=== PATIENT | female | born 1960 | race Caucasian/White ===

== ENCOUNTER 2021-11-22 13:31 | Outpatient (CLI) | payer BC, SELFPAY ==
[2021-11-22 13:27] VITALS: BP 150/84; PULSE 89; RESP 18; TEMP 36.6; O2SAT 94; BMI 34.9
[2021-11-22 14:36] VITALS: BP 140/86; PULSE 81; RESP 17; TEMP 36.2; O2SAT 93
[2021-11-22 15:31] VITALS: BP 138/80; PULSE 71; RESP 16; TEMP 36.2; O2SAT 97
== END 2021-11-22 13:32 | disposition home or self-care (01) ==
LOC: OPS 13:32
PROVIDERS: PCP Family Medicine; Visit Provider Nurse Practitioner
DX: U07.1 COVID-19 (principal)
CPT/HCPCS: 96365

== ENCOUNTER 2021-11-23 15:27 | Emergency (ER) | payer BC, SELFPAY ==
--- NOTE | 2021-11-23 15:29 | ECG_ITS ---
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
[2021-11-23 15:58] VITALS: BP 144/83; PULSE 80; RESP 16; TEMP 37.1; O2SAT 94
--- NOTE | 2021-11-23 18:26 | XRR_ITS ---
PROCEDURE INFORMATION: Exam: XR Chest Exam date and time: 11/23/2021 6:26 PM Age: 61 years old Clinical indication: Cough and shortness of breath; Sternal or substernal pain; Additional info: Chest TECHNIQUE: Imaging protocol: XR of the chest. Views: 1 view. COMPARISON: No relevant prior studies available. FINDINGS: Lungs: Lungs are clear bilaterally. Pleural spaces: No pleural effusion. No pneumothorax. Heart/Mediastinum: Cardiac silhouette is moderately enlarged. Mediastinal contours are unremarkable. Bones/joints: Unremarkable for age. XR/XR chest 1V portable [id number] IMPRESSION: 1. No acute cardiopulmonary process. 2. Incidental/nonacute findings are listed in the report.
--- NOTE | 2021-11-23 18:49 | W.ED.COVID ---
HPI - COVID General: Chief Complaint: COVID symptoms Stated Complaint: covid + had infusion yesterday having cp Time Seen by Provider: 11/23/21 18:35 Triage information: Has fever, cough or shortness of breath. Exposure to COVID + person last 14 days History of Present Illness: HPI Narrative: 61-year-old female comes in today with some brief episodes of chest discomfort after taking prednisone and doxycycline. Patient was diagnosed with COVID-19 on Friday. Patient started feeling ill late Friday early Friday. Patient was started on doxycycline and prednisone on Friday by her primary care while awaiting COVID-19 results. Patient was infused with monoclonal antibodies on . Patient reports no fever since infusion of antibodies. Patient reports 3 brief episodes of chest discomfort. Patient denies any pain at this time. Patient appears well. Patient appears in no pain. Patient denies any chronic medical problems. COVID 19 other sytmptoms: positive chest pain COVID Results: No Data to Display Review of Systems Card: Reports: chest pain Physical Exam Const: COMMON NORMALS: average body habitus HENMT: COMMON NORMALS: normocephalic HEAD & SCALP: normocephalic Eye: COMMON NORMALS: Equal, round and reactive pupils present and EOMs intact bilaterally PUPIL: Yes Equal, round and reactive pupils present Neck/C-Spine: COMMON NORMALS: full ROM and no JVD Chest: COMMONS NORMALS: normal palpation of entire chest wall Resp: COMMON NORMALS: normal respiratory effort and clear to auscultation bilaterally AUSCULTATION: clear to auscultation bilaterally Cardio: COMMON NORMALS: no JVD, regular rate and regular rhythm RATE: regular rate RHYTHM: regular rhythm GI: COMMON NORMALS: Soft to palpation and non-tender PALPATION: Yes Soft to palpation Course Vital Signs: Vital signs: Vital Signs Temperature 98.7 F 11/23/21 15:58 Pulse Rate 80 11/23/21 15:58 Respiratory Rate 16 11/23/21 15:58 Blood Pressure 144/83 11/23/21 15:58 Pulse Oximetry 94 11/23/21 15:58 MDM - COVID MDM Narrative: Medical decision making narrative: 61-year-old female comes in with some chest discomfort intermittent. On exam lungs were clear to auscultation. Heart rate was regular without any abnormal tones. Distal pulses are intact. Abdomen was soft nontender. Skin was warm and dry. EKG was normal sinus rhythm. No prior exams were available for comparison. No ST elevation or ectopy was noted on evaluation. Patient's vital signs were otherwise normal. Lungs were clear to auscultation. Chest x-ray was unremarkable. Reviewed exam with patient with recommendations for treatment and follow-up. Patient reported understanding of care plan and need for follow-up. I believe patient probably has myalgias secondary to COVID-19. No sign of myocarditis, ACS or other serious illness was noted. Differential Diagnosis: Differential diagnosis: Likely COVID 19, pneumonia and NSTEMI/STEMI COVID Results: No Data to Display Discharge Plan Discharge Patient Disposition: Home Clinical Impression: COVID-19 Condition: Stable Discharge Orders: Discharge ED (Routine); Ordered 11/23/21 Ordered By: Aureliano Salas Referrals: Chalino Lee MD [Primary Care Provider] - Discharge Diet: Usual diet Discharge Activity: Increase activity as tolerated Patient Instructions: Viral Syndrome (ED) Activity Restrictions/Additional Instructions: Continue drinking plenty of fluids. Use acetaminophen and ibuprofen for pain. Monitor pulse oxygen for levels less than 90%. Return to the ER for worsening symptoms including chest pain with shortness of breath, low oxygen levels, and inability to hold liquids down. Follow-up with primary care for further directions. Return to the ER as needed. Coding Level of Care Code ED Family Welfare Social Work Professor for Neva Horton
== END 2021-11-23 20:30 | disposition home or self-care (01) ==
PROVIDERS: Emergency Provider Nurse Practitioner Family; PCP Family Medicine
DX: U07.1 COVID-19 (principal)
CPT/HCPCS: 71045; 93005; 99282

== ENCOUNTER 2024-09-02 06:00 | Outpatient (RCR) | payer BC, SELFPAY | END 2024-09-09 23:59 | disposition home or self-care (01) | LOC: SOT 06:00 | PROVIDERS: PCP Family Medicine; Visit Provider Orthopaedic Surgery Hand Surgery | DX: M65.351 Trigger finger, right little finger (principal); G56.01 Carpal tunnel syndrome, right upper limb | CPT/HCPCS: 97110; 97165; 97530 ==

== ENCOUNTER 2024-09-10 06:00 | Outpatient (RCR) | payer BC, SELFPAY | END 2024-10-09 23:59 | disposition home or self-care (01) | LOC: SOT 06:00 | PROVIDERS: PCP Family Medicine; Visit Provider Orthopaedic Surgery Hand Surgery | DX: M65.351 Trigger finger, right little finger (principal); G56.01 Carpal tunnel syndrome, right upper limb | CPT/HCPCS: 97022; 97110; 97140 ==

== ENCOUNTER 2025-01-08 06:00 | Outpatient (RCR) | payer BC, SELFPAY | END 2025-02-07 23:59 | disposition home or self-care (01) | LOC: SOT 06:00 | PROVIDERS: Visit Provider Orthopaedic Surgery Hand Surgery | DX: G56.01 Carpal tunnel syndrome, right upper limb (principal) | CPT/HCPCS: 97035; 97110; 97140; 97165 ==

== ENCOUNTER 2025-02-08 06:00 | Outpatient (RCR) | payer BC, SELFPAY | END 2025-03-09 23:59 | disposition home or self-care (01) | LOC: SOT 06:00 | PROVIDERS: Visit Provider Orthopaedic Surgery Hand Surgery | DX: G56.01 Carpal tunnel syndrome, right upper limb (principal) | CPT/HCPCS: 97035; 97110 ==